=== PATIENT | male | born 2005 | race Caucasian/White ===

== ENCOUNTER 2023-03-24 13:09 | Emergency (ER) | payer OTHER ==
[2023-03-24 13:12] VITALS: BP 118/66; PULSE 86; RESP 18; TEMP 98; BMI 28.3
== END 2023-03-24 15:07 | disposition home or self-care (01) ==
LOC: JER 13:09
DX: K64.9 Unspecified hemorrhoids (principal)
CPT/HCPCS: 82272; 99283-25

== ENCOUNTER 2023-05-15 11:58 | Emergency (ER) | payer OTHER ==
[2023-05-15 12:26] VITALS: BP 121/67; PULSE 76; RESP 18; TEMP 97.9; BMI 28.3
[2023-05-15] MEDS ORDERED: KETOROLAC TROMETHAMINE 30 MG/1 ML VIAL IM ONE (13:00)
[2023-05-15] MEDS ORDERED: KETOROLAC TROMETHAMINE 30 MG/1 ML VIAL ONE (13:09)
[2023-05-15 13:51] LABS: THROAT:GRP A STREP NOT DETECTED (NOTDETECTED)
== END 2023-05-15 14:39 | disposition home or self-care (01) ==
LOC: JER 11:58
PROC: 3E0233Z Introduction of Anti-inflammatory into Muscle, Percutaneous Approach (ICD-10-PCS; principal; 2023-05-15)
DX: J32.9 Chronic sinusitis, unspecified (principal); R07.0 Pain in throat; R13.10 Dysphagia, unspecified; R42 Dizziness and giddiness; Z20.822 Contact with and (suspected) exposure to COVID-19
CPT/HCPCS: 0241U-QW; 87651; 99284-25

== ENCOUNTER 2023-10-25 16:16 | Emergency (ER) | payer OTHER ==
[2023-10-25 16:23] VITALS: BP 103/73; PULSE 79; RESP 18; TEMP 98.7; BMI 28.3
== END 2023-10-25 17:25 | disposition home or self-care (01) ==
LOC: JERFT 16:16
DX: K62.5 Hemorrhage of anus and rectum (principal); K62.89 Other specified diseases of anus and rectum
CPT/HCPCS: 99283-25

== ENCOUNTER 2024-01-11 20:48 | Emergency (ER) | payer OTHER ==
[2024-01-11 20:53] VITALS: BP 115/60; PULSE 63; RESP 18; TEMP 98.7; BMI 28.3
[2024-01-11] MEDS ORDERED: BACITRACIN ZINC 15 GM TUBE TOPICAL OINTMENT ONE (22:25)
[2024-01-11] MEDS: BACITRACIN ZINC 15 GM TUBE TOPICAL OINTMENT TP ONE (22:26)
== END 2024-01-11 22:30 | disposition home or self-care (01) ==
LOC: JERFT 20:48
PROC: 0XQNXZZ Repair Right Index Finger, External Approach (ICD-10-PCS; principal; 2024-01-11)
DX: S61.210A Laceration without foreign body of right index finger without damage to nail, initial encounter (principal); W26.8XXA Contact with other sharp object(s), not elsewhere classified, initial encounter
CPT/HCPCS: 99283-25